=== PATIENT | female | born 1945 | race Caucasian/White ===

== ENCOUNTER 2017-02-15 15:02 | Emergency (ER) | payer MEDICARE, BC ==
[2017-02-15] MEDS ORDERED: Sodium Chloride 0.9% 10 ML Syringe FLUSH PRN (15:14)
--- NOTE | 2017-02-15 16:25 | EDM.PDOC ---
ED HPI ALTERED MENTAL STATUS - General Chief Complaint: Neurological Problem Stated Complaint: STROKE Time Seen by Provider: 02/15/17 15:05 Source: Reports: Patient, Family History Limitations: Reports: Other (very difficult to understand the events of the last 24 hours as pt can not communicate. ) - History of Present Illness INITIAL COMMENTS - FREE TEXT/NARRATIVE: Pt arrived with a history of several hours of not being able to communicate. She denies a headache and she has not had chest pain. w Timing/Duration: Reports: Hour(s):, Other ( started last nite Pt is not able to speak. She denies ) - Related Data Allergies/ADRs: Allergies amoxicillin Allergy (Verified 02/15/17 15:56) Nausea leflunomide Allergy (Verified 02/15/17 15:56) Rash oxycodone [Oxycodone] Allergy (Verified 02/15/17 15:13) Vomiting Sulfa (Sulfonamide Antibiotics) Allergy (Verified 02/15/17 15:13) Rash Home Meds: Home Meds Lisinopril [Prinivil] 40 mg PO DAILY 09/19/14 [History] Methotrexate Sodium [Methotrexate] 8 tab PO WEEKLY 09/19/14 [History] Omeprazole [Omeprazole] 20 mg PO DAILY 09/19/14 [History] Brimonidine Tartrate/Timolol [Combigan 0.2%-0.5% Eye Drops] 1 drop TOP BID 02/15 [History] Cholecalciferol (Vitamin D3) [Vitamin D3] 1,000 unit PO DAILY 02/15/17 [History] Folic Acid 3 mg PO DAILY 02/15/17 [History] Magnesium 500 mg PO DAILY 02/15/17 [History] Past Medical History HEENT History: Reports: Glaucoma Cardiovascular History: Reports: High cholesterol, Hypertension Hematologic History: Reports: Anemia Immunologic History: Reports: Other (see below) Other Immunologic History: rheumatoid arthritis - Past Surgical History Musculoskeletal Surgical History: Reports: Other (see below) Other Musculoskeletal Surgeries/Procedures:: back surgery Social & Family History - Tobacco Use Smoking Status *Q: Never Smoker - Recreational Drug Use Recreational Drug Use: No ED ROS GENERAL - Review of Systems Review Of Systems: See Below Constitutional: Reports: other (pt is having a difficult time communicating) HEENT: Reports: No symptoms Respiratory: Reports: No Symptoms Cardiovascular: Reports: No symptoms Endocrine: Reports: no symptoms GI/Abdominal: Reports: No symptoms : Reports: no symptoms Musculoskeletal: Reports: no symptoms Skin: Reports: no symptoms Neurological: Reports: Dizziness, Trouble Speaking Psychiatric: Reports: No symptoms - Physical Exam Exam: See Below Text/Narrative:: pt started last nite to not be able to communicate. She could occasionally get some words out. She did not have chest pain. Exam Limited By: Other (pt is not able to communicate) General Appearance: other (pupils are equal and reactive. Sh is very lite sensitive. ) Ears: normal TMs Nose: normal inspection Throat/Mouth: Normal inspection Head Exam: atraumatic Neck: normal inspection Respiratory/Chest: no respiratory distress Cardiovascular: regular rate, rhythm GI/Abdominal: soft, non tender Rectal (Female) Exam: Deferred Neuro Exam (Abbreviated): alert, normal cognition, other (pt is not able to communicate) Back Exam: normal inspection Extremities: normal inspection, other ( full range of motion of all extremities. ) Psychiatric: normal affect Course - Vital Signs Last Recorded V/S: Last Vital Signs Temp 36.3 C 02/15/17 15:07 Pulse 95 02/15/17 17:36 Resp 16 02/15/17 17:36 BP 183/104 H 02/15/17 17:36 Pulse Ox 100 02/15/17 17:36 - Orders/Labs/Meds Labs: Laboratory Tests 02/15/17 02/15/17 02/15/17 Range/Units 15:17 15:17 15:17 WBC 6.5 (4.5-11.0) K/uL RBC 3.69 (3.30-5.50) M/uL Hgb 11.9 L (12.0-15.0) g/dL Hct 35.6 L (36.0-48.0) % MCV 97 (80-98) fL MCH 32 H (27-31) pg MCHC 33 (32-36) % Plt Count 318 (150-400) K/uL Neut % (Auto) 69 H (36-66) % Lymph % (Auto) 17 L (24-44) % [place] % (Auto) 12 H (2-6) % Eos % (Auto) 1 L (2-4) % Baso % (Auto) 1 (0-1) % Sodium 137 L (140-148) mmol/L Potassium 4.0 (3.6-5.2) mmol/L Chloride 99 L (100-108) mmol/L Carbon Dioxide 25 (21-32) mmol/L Anion Gap 17.0 H (5.0-14.0) mmol/L BUN 21 H (7-18) mg/dL Creatinine 1.3 H (0.6-1.0) mg/dL Est Cr Clr Drug Dosing 30.56 mL/min Estimated GFR (MDRD) 40 L (>60) Glucose 106 (74-106) mg/dL Calcium 9.4 (8.5-10.1) mg/dL Total Bilirubin 0.4 (0.2-1.0) mg/dL AST 25 (15-37) U/L ALT 78 (12-78) U/L Alkaline Phosphatase 36 L (46-116) U/L Troponin I 0.119 H* (0.000-0.056) ng/mL Total Protein 8.1 (6.4-8.2) g/dL Albumin 3.8 (3.4-5.0) g/dL Globulin 4.3 H (2.3-3.5) g/dL Albumin/Globulin Ratio 0.9 L (1.2-2.2) Urine Color Urine Appearance Urine pH (4.5-8.0) Ur Specific [place] (1.008-1.030) Urine Protein (NEGATIVE) mg/dL Urine Glucose (UA) (NEGATIVE) mg/dL Urine Ketones (NEGATIVE) mg/dL Urine Occult Blood (NEGATIVE) Urine Nitrite (NEGATIVE) Urine Bilirubin (NEGATIVE) Urine Urobilinogen (NORMAL) mg/dL Ur Leukocyte Esterase (NEGATIVE) Urine RBC (0-5) Urine WBC (0-5) Ur Epithelial Cells Amorphous Sediment Urine Bacteria Urine Mucus 02/15/17 Range/Units 15:48 WBC (4.5-11.0) K/uL RBC (3.30-5.50) M/uL Hgb (12.0-15.0) g/dL Hct (36.0-48.0) % MCV (80-98) fL MCH (27-31) pg MCHC (32-36) % Plt Count (150-400) K/uL Neut % (Auto) (36-66) % Lymph % (Auto) (24-44) % [place] % (Auto) (2-6) % Eos % (Auto) (2-4) % Baso % (Auto) (0-1) % Sodium (140-148) mmol/L Potassium (3.6-5.2) mmol/L Chloride (100-108) mmol/L Carbon Dioxide (21-32) mmol/L Anion Gap (5.0-14.0) mmol/L BUN (7-18) mg/dL Creatinine (0.6-1.0) mg/dL Est Cr Clr Drug Dosing mL/min Estimated GFR (MDRD) (>60) Glucose (74-106) mg/dL Calcium (8.5-10.1) mg/dL Total Bilirubin (0.2-1.0) mg/dL AST (15-37) U/L ALT (12-78) U/L Alkaline Phosphatase (46-116) U/L Troponin I (0.000-0.056) ng/mL Total Protein (6.4-8.2) g/dL Albumin (3.4-5.0) g/dL Globulin (2.3-3.5) g/dL Albumin/Globulin Ratio (1.2-2.2) Urine Color Yellow Urine Appearance Clear Urine pH 7.0 (4.5-8.0) Ur Specific [place] 1.010 (1.008-1.030) Urine Protein Negative (NEGATIVE) mg/dL Urine Glucose (UA) Normal (NEGATIVE) mg/dL Urine Ketones Negative (NEGATIVE) mg/dL Urine Occult Blood Negative (NEGATIVE) Urine Nitrite Negative (NEGATIVE) Urine Bilirubin Negative (NEGATIVE) Urine Urobilinogen Normal (NORMAL) mg/dL Ur Leukocyte Esterase Negative (NEGATIVE) Urine RBC 0-5 (0-5) Urine WBC 0-5 (0-5) Ur Epithelial Cells Few Amorphous Sediment Rare Urine Bacteria Few Urine Mucus Few Meds: Medications Discontinued Medications Generic Name Dose Route Start Last Admin Trade Name Freq PRN Reason Stop Dose Admin Labetalol HCl 20 mg 02/15/17 17:04 Normodyne IVPUSH 02/15/17 17:05 NOW ONE Sodium Chloride 10 ml 02/15/17 15:14 Saline Flush FLUSH ASDIRECTED PRN Keep Vein Open - Re-Assessments/Exams Free Text/Narrative Re-Assessment/Exam: 02/15/17 17:08 pt had an elevated tropin, her cat scan of the head did not show sig changes. She continued to have difficulty communicating. 02/18/17 09:52 Departure - Departure Time of Disposition: 16:45 Disposition: DC/Tfer to Acute Hospital 02 Condition: fair Clinical Impression: Symptoms of cerebrovascular accident (CVA), Elevated troponin Referrals: Valeriano Hardin MD [Primary Care Provider] - Forms: ED Department Discharge Care Plan Goals: transfer to [facility]
[2017-02-15] MEDS ORDERED: Labetalol 20 MG/4 ML Syringe IVPUSH ONE (17:04)
[2017-02-15 17:37] VITALS: BP 183/104
== END 2017-02-15 17:41 ==
LOC: JP.ED 15:02
DX: R29.90 Unspecified symptoms and signs involving the nervous system (principal); R79.89 Other specified abnormal findings of blood chemistry; E78.00 Pure hypercholesterolemia, unspecified; I10 Essential (primary) hypertension; D64.9 Anemia, unspecified; M06.9 Rheumatoid arthritis, unspecified; Z79.899 Other long term (current) drug therapy; Z88.1 Allergy status to other antibiotic agents; Z88.2 Allergy status to sulfonamides; Z88.8 Allergy status to other drugs, medicaments and biological substances
CPT/HCPCS: 36415; 70450; 80053; 81001; 84484; 85025; 93005; 93010; 96374; 99285; 99285-25

== ENCOUNTER → 2019-01-27 | Day surgery (SDC) | payer MEDICARE, BC ==
[~2019-01-27] MED LIST: Propofol 200 MG/20 ML SDV ONE; Sodium Chloride 0.9% 1,000 ML IV SCH; fentaNYL 100 MCG/2 ML SDV ONE
[2019-01-27 09:41] VITALS: BP 120/73
--- NOTE | 2019-01-27 13:27 | OR ---
DATE OF PROCEDURE: 01/27/2019 PROCEDURES: 1. EGD with biopsy of gastric cardia. 2. Hernandez pH monitor placement (08047). COMPLICATIONS: None. ACCOUNTS RECEIVABLE COORDINATOR: None. ANESTHESIA: MAC. RISKS: Risks, benefits, alternatives, and limitations including, but not limited to infection, bleeding, and perforation were explained to the patient, who wished to proceed. PREOPERATIVE DIAGNOSIS: Epigastric pain. POSTOPERATIVE DIAGNOSIS: Epigastric pain. PROCEDURE IN DETAIL: The patient was placed in left lateral decubitus position. The EGD scope was introduced and advanced atraumatically to the second part of the duodenum. No evidence of duodenitis or abnormality. In the stomach on retroflex, the patient had a hiatal hernia, [id number] in size, and in the gastric cardia, there was a polypoid-type lesion, which was completely removed using cold biopsy forceps. No gastritis or ulceration. The GE junction was measured at approximately 36 cm from the bite block itself. The remainder of esophagus was inspected and without abnormality. Hernandez pH monitor was introduced and placed approximately 6 cm from the aforementioned location. This was deployed in standard forced fashion. The carrier was then removed. The EGD scope was then reintroduced and the device was noted to be present. The patient tolerated the procedure well. Kuldip Simmons MD /[id number]
== END ==
LOC: JP.SDS 06:43
PROVIDERS: ATTEND Surgery
DX: R10.13 Epigastric pain (principal); K44.9 Diaphragmatic hernia without obstruction or gangrene; I25.10 Atherosclerotic heart disease of native coronary artery without angina pectoris; E78.5 Hyperlipidemia, unspecified; K21.9 Gastro-esophageal reflux disease without esophagitis; I50.9 Heart failure, unspecified; N18.3 Chronic kidney disease, stage 3 (moderate)
CPT/HCPCS: 88305; J2704; J3010

== ENCOUNTER 2019-11-19 09:48 | Emergency (ER) | payer MEDICARE, BC ==
--- NOTE | 2019-11-19 11:01 | EDM.PDOC ---
ED HPI GENERAL MEDICAL PROBLEM - General Chief Complaint: Respiratory Problem Stated Complaint: S.O.B. Time Seen by Provider: 11/19/19 10:30 Source of Information: Reports: Patient History Limitations: Reports: No Limitations - History of Present Illness INITIAL COMMENTS - FREE TEXT/NARRATIVE: 74-year-old female with a known history of chronic pulmonary fibrosis, also rheumatoid arthritis, who is had increasing shortness of breath with activity over the past several weeks. She feels like she has phlegm in her throat but has no fever or productive cough. The shortness of breath is mainly with activity, if she is sitting still or lying down she has no symptoms. No weight gain or peripheral edema. She had an echocardiogram earlier this year that showed no significant congestive heart failure or pulmonary hypertension at that time. This was in January 2019. No change in medications recently. Patient looks comfortable, O2 saturations are at 99% and respiratory rate normal at 18. Onset: Gradual Duration: Week(s): (Several weeks) Associated Symptoms: Reports: Cough (Mild nonproductive cough), Shortness of Breath. Denies: Chest Pain, Fever/Chills, Headaches, Malaise, Nausea/Vomiting ( With activity), Weakness - Related Data Allergies Allergy/AdvReac Type Severity Reaction Status Date / Time hydrocodone Allergy Rash Verified 01/23/19 10:29 leflunomide Allergy Rash Verified 02/15/17 15:56 Sulfa (Sulfonamide Allergy Rash Verified 02/15/17 15:13 Antibiotics) amoxicillin AdvReac Nausea Verified 01/26/19 12:02 oxycodone [Oxycodone] AdvReac Vomiting Verified 01/26/19 12:02 tramadol AdvReac Nausea and Verified 01/26/19 12:02 Vomiting Home Meds: Home Meds Methotrexate Sodium [Methotrexate] 8 tab PO WEEKLY 09/19/14 [History] lisinopriL [Prinivil] 40 mg PO DAILY 09/19/14 [History] Brimonidine Tartrate/Timolol [Combigan 0.2%-0.5% Eye Drops] 1 drop TOP BID 02/15 [History] Cholecalciferol (Vitamin D3) [Vitamin D3] 400 unit PO DAILY 02/15/17 [History] Magnesium 600 mg PO DAILY 02/15/17 [History] Oxybutynin [Oxybutynin ER] 10 mg PO DAILY 01/23/19 [History] atorvaSTATin [Lipitor] 40 mg PO BEDTIME 01/23/19 [History] Acetaminophen [Tylenol] 325 mg PO ASDIRECTED 01/26/19 [History] Ascorbic Acid [C-1000] 1,000 mg PO DAILY 01/26/19 [History] Aspirin 81 mg PO DAILY 01/26/19 [History] Calcium Citrate 1 tab PO DAILY 01/26/19 [History] Carvedilol [Coreg] 12.5 mg PO BIDMEALS 01/26/19 [History] Furosemide 20 mg PO DAILY 01/26/19 [History] Multivitamin-Min/Iron/FA/Vit K [Multi-Day Plus Minerals Tablet] 1 tab PO [History] Potassium Chloride 1 tab PO DAILY 01/26/19 [History] Ranitidine [Zantac] 150 mg PO BID 01/26/19 [History] methylPREDNISolone [Medrol] 4 mg PO DAILY 01/26/19 [History] Iron,Carbonyl/Vit C/Vit B12/Fa [Iron 100 Plus Tablet] 100 mg PO DAILY 11/19/19 [ History] Past Medical History HEENT History: Reports: Glaucoma, Impaired Vision Cardiovascular History: Reports: High Cholesterol, Hypertension Other Cardiovascular History: loop recorder Gastrointestinal History: Reports: GERD Genitourinary History: Reports: Urinary Incontinence Musculoskeletal History: Reports: Arthritis Neurological History: Reports: TIA Hematologic History: Reports: Anemia Immunologic History: Reports: Other (See Below) Other Immunologic History: rheumatoid arthritis - Past Surgical History Cardiovascular Surgical History: Reports: None, Coronary Artery Bypass Other Cardiovascular Surgeries/Procedures: cabg x 5 2016 GI Surgical History: Reports: Hernia, Abdominal Female Surgical History: Reports: None Social & Family History - Family History Family Medical History: Noncontributory - Tobacco Use Smoking Status *Q: Never Smoker - Caffeine Use Caffeine Use: Reports: Coffee Other Caffeine Use: 2-3 cups ED ROS GENERAL - Review of Systems Review Of Systems: See Below Constitutional: Denies: Fever, Chills HEENT: Denies: Throat Pain Respiratory: Reports: Shortness of Breath, Cough. Denies: Wheezing, Pleuritic Chest Pain, Sputum Cardiovascular: Denies: Chest Pain, Palpitations GI/Abdominal: Denies: Abdominal Pain, Nausea, Vomiting Musculoskeletal: Reports: Other (Rheumatoid arthritis controlled with methotrexate) Skin: Reports: Other (Patient tends to develop some chronic bruising especially on the lower extremities) Neurological: Denies: Headache, Weakness Psychiatric: Reports: No Symptoms ED EXAM, GENERAL - Physical Exam Exam: See Below Exam Limited By: No Limitations General Appearance: Alert, No Apparent Distress Eye Exam: Bilateral Eye: Normal Inspection Throat/Mouth: Normal Inspection Head: Atraumatic Respiratory/Chest: No Respiratory Distress, Lungs Clear, Crackles (A few chronic sounding crackles at the extreme bases especially on the left side) Cardiovascular: Regular Rate, Rhythm, Extra Beats GI/Abdominal: Non-Tender Extremities: Normal Inspection. No: Pedal Edema Neurological: Alert, Oriented, No Motor/Sensory Deficits Psychiatric: Normal Affect, Normal Mood Skin Exam: Warm, Dry Course - Vital Signs Last Recorded V/S: Last Vital Signs Temp 96.9 F 11/19/19 10:05 Pulse 80 11/19/19 11:11 Resp 18 11/19/19 11:11 BP 155/94 H 11/19/19 11:11 Pulse Ox 100 11/19/19 11:11 - Orders/Labs/Meds Labs: Laboratory Tests 11/19/19 11/19/19 11/19/19 Range/Units 11:01 11:01 11:01 WBC 11.1 H (4.5-11.0) K/uL RBC 3.07 L (3.30-5.50) M/uL Hgb 10.1 L (12.0-15.0) g/dL Hct 31.0 L (36.0-48.0) % MCV 101 H (80-98) fL MCH 33 H (27-31) pg MCHC 33 (32-36) % Plt Count 376 (150-400) K/uL Neut % (Auto) 79 H (36-66) % Lymph % (Auto) 10 L (24-44) % [place] % (Auto) 10 H (2-6) % Eos % (Auto) 1 L (2-4) % Baso % (Auto) 0 (0-1) % D-Dimer, Quantitative 1100 H (0.0-400.0) ng/mL Sodium 133 L (140-148) mmol/L Potassium 4.0 (3.6-5.2) mmol/L Chloride 99 L (100-108) mmol/L Carbon Dioxide 23 (21-32) mmol/L Anion Gap 15.0 H (5.0-14.0) mmol/L BUN 35 H D (7-18) mg/dL Creatinine 1.4 H (0.6-1.0) mg/dL Est Cr Clr Drug Dosing 27.46 mL/min Estimated GFR (MDRD) 37 L (>60) Glucose 121 H (74-106) mg/dL Calcium 8.5 (8.5-10.1) mg/dL Total Bilirubin 0.5 (0.2-1.0) mg/dL AST 29 (15-37) U/L ALT 102 H (12-78) U/L Alkaline Phosphatase 74 D (46-116) U/L NT-Pro-B Natriuret Pep (5-450) pg/mL Total Protein 7.2 (6.4-8.2) g/dL Albumin 3.4 (3.4-5.0) g/dL Globulin 3.8 H (2.3-3.5) g/dL Albumin/Globulin Ratio 0.9 L (1.2-2.2) 11/19/19 Range/Units 11:01 WBC (4.5-11.0) K/uL RBC (3.30-5.50) M/uL Hgb (12.0-15.0) g/dL Hct (36.0-48.0) % MCV (80-98) fL MCH (27-31) pg MCHC (32-36) % Plt Count (150-400) K/uL Neut % (Auto) (36-66) % Lymph % (Auto) (24-44) % [place] % (Auto) (2-6) % Eos % (Auto) (2-4) % Baso % (Auto) (0-1) % D-Dimer, Quantitative (0.0-400.0) ng/mL Sodium (140-148) mmol/L Potassium (3.6-5.2) mmol/L Chloride (100-108) mmol/L Carbon Dioxide (21-32) mmol/L Anion Gap (5.0-14.0) mmol/L BUN (7-18) mg/dL Creatinine (0.6-1.0) mg/dL Est Cr Clr Drug Dosing mL/min Estimated GFR (MDRD) (>60) Glucose (74-106) mg/dL Calcium (8.5-10.1) mg/dL Total Bilirubin (0.2-1.0) mg/dL AST (15-37) U/L ALT (12-78) U/L Alkaline Phosphatase (46-116) U/L NT-Pro-B Natriuret Pep 48902 H (5-450) pg/mL Total Protein (6.4-8.2) g/dL Albumin (3.4-5.0) g/dL Globulin (2.3-3.5) g/dL Albumin/Globulin Ratio (1.2-2.2) - Re-Assessments/Exams Free Text/Narrative Re-Assessment/Exam: 11/19/19 11:03 A 2 view chest x-ray, CBC, CMP, d-dimer and BNP were obtained. 11/19/19 11:41 Findings: Lungs: Prominent interstitial markings are seen throughout both lungs, greatest on the pleural edges. Mediastinum: Heart size and pulmonary vasculature are normal. Bones/soft tissues: There is surgical changes with hardware in the lumbar spine. Impression: 1. Chronic interstitial changes, consistent with idiopathic pulmonary fibrosis. 2. No acute airspace opacity or pneumonia. Chest x-ray shows above findings and BNP is markedly elevated at 37,000. Electrolytes and renal function are consistent with a year ago. Patient has not taken her diuretic in the last 2 weeks, and because she is very stable she would like to try to resume the diuretic for the next 1 to 2 weeks and avoid sodium intake prior to hospitalization or further work-up. She will return if worsening despite diuretic. Recheck with Dr. Hardin in the next 2 weeks. Departure - Departure Time of Disposition: 11:52 Disposition: Home, Self-Care 01 Clinical Impression: Dyspnea on exertion Congestive heart failure Qualifiers: Heart failure type: systolic Heart failure chronicity: acute on chronic Qualified Code(s): I50.23 - Acute on chronic systolic (congestive) heart failure - Discharge Information Instructions: Heart Failure, Qcol-sx-Cpcl Referrals: Valeriano Hardin MD [Primary Care Provider] - Forms: ED Department Discharge Care Plan Goals: Resume daily furosemide for the next 10 to 14 days, and try to avoid any extra salt intake. Continue your other medications as directed. Consider rechecking in 1 to 2 weeks if not improving satisfactorily, or return sooner at any time if worsening such as increasing shortness of breath or chest pain. Sepsis Event Note - Evaluation Sepsis Screening Result: No Definite Risk - Focused Exam Vital Signs: Vital Signs Temp Pulse Resp BP Pulse Ox 11/19/19 11:11 80 18 155/94 H 100 11/19/19 10:05 96.9 F 79 18 169/97 H 99 Date Exam was Performed: 11/19/19 Time Exam was Performed: 15:32
[2019-11-19 11:12] VITALS: BP 155/94; PULSE 80
--- NOTE | 2019-11-19 11:32 | CRLCR ---
Indication: Dyspnea Technique: Two views of the chest Comparison: CT chest 10/15/2017 Findings: Lungs: Prominent interstitial markings are seen throughout both lungs, greatest on the pleural edges. Mediastinum: Heart size and pulmonary vasculature are normal. Bones/soft tissues: There is surgical changes with hardware in the lumbar spine. Impression: 1. Chronic interstitial changes, consistent with idiopathic pulmonary fibrosis. 2. No acute airspace opacity or pneumonia. Dictated by Garth Copeland MD @ Nov 19 2019 11:29AM Signed by Dr. Garth Copeland @ Nov 19 2019 11:31AM
== END 2019-11-19 11:56 | disposition home or self-care (01) ==
LOC: JP.ED 09:48
DX: I11.0 Hypertensive heart disease with heart failure (principal); I50.23 Acute on chronic systolic (congestive) heart failure; K21.9 Gastro-esophageal reflux disease without esophagitis; H40.9 Unspecified glaucoma; E78.00 Pure hypercholesterolemia, unspecified; M06.9 Rheumatoid arthritis, unspecified; Z88.5 Allergy status to narcotic agent; Z88.8 Allergy status to other drugs, medicaments and biological substances; Z88.2 Allergy status to sulfonamides; Z88.0 Allergy status to penicillin; Z95.1 Presence of aortocoronary bypass graft; Z86.73 Personal history of transient ischemic attack (TIA), and cerebral infarction without residual deficits; Z79.899 Other long term (current) drug therapy; Z79.82 Long term (current) use of aspirin
CPT/HCPCS: 36415; 71046; 80053; 83880; 85025; 85379; 99283; 99285-25